=== PATIENT | female | born 1955 | race Caucasian/White ===

== ENCOUNTER 2017-04-02 08:51 | Day surgery (SDC) | payer BC ==
[~2017-04-02 08:51] MED LIST: Buffered Lidocaine 0.9% SYRIN* 5 ML/SYR SYRINGE INTRADERM ONE; Famotidine IV* 10 MG/ML 2 ML (20 mg) IV ONE; Famotidine IV* 10 MG/ML 2 ML (20 mg) ONE; ceFAZolin 2 GM PREMIX (*) 2 GM/50 ML BAG IVPB ONE
[2017-04-02] MEDS ORDERED: Lidocaine 2% PF * 5 ML VIAL ONE (09:16)
[2017-04-02] MEDS ORDERED: Propofol* 10 MG/ML 20 ML BTL IV PUSH ONE (09:16)
[2017-04-02] MEDS ORDERED: Ketorolac INJ* 30 MG/ML 1 ML VIAL ONE (09:16)
[2017-04-02] MEDS ORDERED: Ondansetron INJ* 2 MG/ML VIAL ONE (09:16)
[2017-04-02] MEDS ORDERED: Dexamethasone IV* 4 MG/ML 1 ML (4 MG) ONE ×2 (09:16→10:46)
[2017-04-02] MEDS ORDERED: Midazolam* 1 MG/ML 2 ML VIAL (2 MG) ONE ×2 (09:16→11:11)
[2017-04-02] MEDS ORDERED: fentaNYL* 50 MCG/ML 2 ML VIAL (100 MCG VIAL) ONE (09:16)
[2017-04-02] MEDS ORDERED: Lidocaine 1% INJ* 10 MG/ML 30 ML SDV ONE (10:45)
[2017-04-02] MEDS ORDERED: Bupivacaine 0.5% SDV PF* 10-30ML VIAL ONE (10:46)
[2017-04-02] MEDS ORDERED: oxyCODONE TAB* 5 MG TAB PO PRN (12:15)
[2017-04-02] MEDS ORDERED: Naloxone* 0.4 MG/ML 1 ML VIAL IV PRN (12:15)
[2017-04-02] MEDS ORDERED: DiMENhydriNATE IV* 50 MG/ML VIAL IV PUSH PRN (12:15)
[2017-04-02] MEDS ORDERED: Acetaminophen TAB* 325 MG PO PRN (12:15)
[2017-04-02] MEDS ORDERED: HYDROmorphone INJ* 1 MG/ML CARPUJECT SYRINGE IV PRN (12:15)
[2017-04-02 12:56] VITALS: BP 133/82
--- NOTE | 2017-04-03 01:37 | OP ---
DATE OF OPERATION: 04/02/17 - [facility] DATE OF : 57 SURGEON: Kurt Jerez DPM [employer] SALES: None. ANESTHESIOLOGIST: Elsy Christine MD ANESTHESIA: MAC with local. PRE-OP DIAGNOSES: 1. Painful bone spur in the right foot. 2. Painful ganglion cyst, right foot. POST-OP DIAGNOSES: 1. Painful bone spur in the right foot. 2. Painful ganglion cyst, right foot. OPERATIVE PROCEDURE: 1. Excision of ganglion cyst from right foot. 2. Excision of tarsal bone spur, right foot. PATHOLOGY: Excised bone spur and synovial cyst from right foot. HEMOSTASIS: Pneumatic ankle tourniquet. ESTIMATED BLOOD LOSS: Less than 10 cc. INDICATIONS: The patient with prior injury to the right foot with resultant growth and swelling in the dorsolateral aspect of the right foot causing local pain and paresthesias and difficulty wearing any cloth shoe or walking due to the pain. MRI confirms presence of a ganglion cyst as well as an accessory ossicle or reactive bone spur from prior injury. The patient asked for surgery at this time to remove the cyst and bone spur to improve comfort and ability to wear her cloth shoes and walk. DESCRIPTION OF PROCEDURE: The patient was brought to the operating room, placed on the operating room table in the supine position. The anesthesia department administered IV sedation and a peripheral nerve block was performed about the right forefoot with a 1:1 mixture of 1% lidocaine plain and 0.5% Marcaine plain in a ring- type block in the dorsolateral aspect of the right foot. The right foot was then prepped and draped in the usual fashion. The right foot was then exsanguinated with an Esmarch bandage and the pneumatic ankle tourniquet was inflated to 250 mmHg above a well-padded right ankle. Attention was directed to the dorsolateral aspect of the right foot. Residual and palpable subcutaneous mass was noted. A curvilinear incision was made. The incision was deepened through subcutaneous tissues with care being taken to retract neurovascular structures and cauterized superficial bleeders as needed. The extensor digitorum brevis muscle was directly in the medial over this area and the deep fascia was incised and this area was dissected to allow for exposure of the underlying mass. Near the calcaneocuboid joint, a yellowish synovial cyst was visible and using sharp and blunt dissection was free from surrounding soft tissue attachments and excised and sent off the field. The deep fascia and capsular tissues were incised near the sinus tarsi and the calcaneocuboid joint. Once this was reflected, a large bone mass was noted. Using a sagittal bone saw as well as rongeur and power bur, the excess bone was resected and the power bur was used to smooth any rough edges. The surgical site was flushed with copious amounts of normal sterile saline. The deep fascia and capsular tissues as well as the fascia adjacent to the muscle was reapproximated and secured with 4-0 Vicryl. Subcutaneous tissues were reapproximated with 4-0 Vicryl and skin was closed with 5-0 nylon. A 12 mg of dexamethasone phosphate was infiltrated about the surgical site and incision was then dressed with Xeroform gauze, 4x4 gauze, Trip, and light Coban wrap. The pneumatic ankle tourniquet was deflated about the right ankle and a prompt hyperemic response was noted in all 5 digits of the patient's right foot. Having appeared to tolerate the procedures and anesthesia well. The patient was transported via cart from the operating room to recovery in satisfactory condition with cap refill less than 3 seconds to all digits of the right foot. [id number]/[facility] #: [id number] MTDElisa
== END 2017-04-02 12:48 | disposition home or self-care (01) ==
LOC: OREAST 08:51
PROVIDERS: ATTEND Podiatrist Foot Surgery
DX: M77.31 Calcaneal spur, right foot (principal); M67.471 Ganglion, right ankle and foot; Z87.891 Personal history of nicotine dependence; Z85.3 Personal history of malignant neoplasm of breast; Z85.41 Personal history of malignant neoplasm of cervix uteri; E03.9 Hypothyroidism, unspecified; M19.90 Unspecified osteoarthritis, unspecified site; J30.2 Other seasonal allergic rhinitis
CPT/HCPCS: J0690; J1100; J1885; J2250; J2405; J2704; J3010